=== PATIENT | male | born 1945 | race Caucasian/White ===

== ENCOUNTER → 2019-07-10 | Outpatient (CLI) | payer MEDICARE | END | disposition home or self-care (01) | LOC: LAB 13:47 | PROVIDERS: ATTEND Internal Medicine Cardiovascular Disease | DX: I50.43 Acute on chronic combined systolic (congestive) and diastolic (congestive) heart failure (principal); I48.19 Other persistent atrial fibrillation; Z79.899 Other long term (current) drug therapy | CPT/HCPCS: 36415; 84443 ==